=== PATIENT | female | born 1950 | race African-American/Black ===

== ENCOUNTER 2018-10-25 20:49 | Emergency (ER) | payer OTHER ==
[2018-10-25] MEDS ORDERED: ASPIRIN 81 MG TABLET, CHEWABLE PO ONE (21:11)
--- NOTE | 2018-10-25 21:58 | RADIOLOGY REPORT (SQ) ---
XR CHEST 2 VIEWS EXAM DATE: 10/25/2018 12:00 AM CDT HISTORY: Chest pain. COMPARISON: None. FINDINGS: The heart size is within normal limits. No consolidation, pleural effusion, or pneumothorax is seen. The bony thorax is intact. IMPRESSION: No evidence of acute cardiopulmonary disease.
[2018-10-25 22:53] LABS: ABSOLUTE EOSINOPHILS # (AUTO) 0.1 10^3/uL (0.0-0.6); ABSOLUTE LYMPHOCYTES (AUTO) 2.2 10^3/uL (0.5-4.7); ABSOLUTE MONOCYTES (AUTO) 0.7 10^3/uL (0.1-1.4); ABSOLUTE NEUT (AUTO) 3.1 10^3/uL (1.7-8.2); BASOPHILS % (AUTO) 0.5 % (0-2); EOSINOPHILS % (AUTO) 0.8 % (0-6); HEMATOCRIT 41.4 % (36.0-47.0); HEMOGLOBIN 13.7 g/dL (12.0-15.5); LYMPHOCYTES % (AUTO) 36.5 % (13-45); MEAN CORPUSCULAR HEMOGLOBIN 30.1 pg (27.0-33.4); MEAN CORPUSCULAR VOLUME 91 fl (80-97); MONOCYTES % (AUTO) 10.9 % (3-13); PLATELET COUNT 206 10^3/uL (150-450); RED BLOOD COUNT 4.55 10^6/uL (3.72-5.28); RED CELL DISTRIBUTION WIDTH 13.2 % (11.5-14.0); SEGMENTED NEUTROPHILS % (AUTO) 51.3 % (42-78); TOTAL CELLS COUNTED % (AUTO) 100 %; WHITE BLOOD COUNT 6.1 10^3/uL (4.0-10.5)
[2018-10-25 23:09] LABS: ALBUMIN 4.5 g/dL (3.5-5.0); ALKALINE PHOSPHATASE 85 U/L (38-126); ANION GAP 7 (5-19); ASPARTATE AMINO TRANSFERASE 25 U/L (14-36); BILIRUBIN,DIRECT 0.1 mg/dL (0.0-0.4); BILIRUBIN,TOTAL 0.4 mg/dL (0.2-1.3); BLOOD UREA NITROGEN 19 mg/dL (7-20); CALCIUM 10.2 mg/dL (8.4-10.2); CARBON DIOXIDE 33 mmol/L (22-30); CHLORIDE 100 mmol/L (98-107); CREATINE KINASE 69 U/L (30-135); GLUCOSE 85 mg/dL (75-110); POTASSIUM 4.7 mmol/L (3.6-5.0); TOTAL PROTEIN 8.3 g/dL (6.3-8.2)
[2018-10-25 23:21] LABS: CREATINE KINASE MB 0.55 ng/mL (<4.55)
[2018-10-25 23:23] LABS: TROPONIN I < 0.012 ng/mL
--- NOTE | 2018-10-26 00:18 | ER Document Report ---
ED Cardiac - General Chief Complaint: Chest Pain Stated Complaint: CHEST PAIN Time Seen by Provider: 10/26/18 00:10 Primary Care Provider: LUPIS GRANDA MD [ACTIVE STAFF] - Follow up tomorrow Notes: Patient is a 68-year-old female that comes emergency department for chief complaint of chest pain that she noticed earlier this morning, she states that she notices shortness of breath with the pain, pain is over the left side of the chest. She states that it is intermittently worse but it has not gone away. She still feels a mild discomfort. She denies dizziness, cough, fever, nausea, vomiting, difficulty eating, pain with movement. She denies injury. She did travel by flight 2 weeks ago, she is visiting from [place] with her sister. She denies smoking, alcohol, recreational drugs, or any daily medications. Only past medical history reported is arthritis and hysterectomy, and she treats OA with yoga and physical therapy. She states her mom had CHF but she does not have any family members with determined heart attacks. TRAVEL OUTSIDE OF THE [place] IN LAST 30 DAYS: No Past Medical History - General Information source: Patient - Social History Smoking Status: Never Smoker Frequency of alcohol use: None Drug Abuse: None Lives with: Family Family History: Other - CHF Patient has suicidal ideation: No Patient has homicidal ideation: No Renal/ Medical History: Denies: Hx Peritoneal Dialysis Musculoskeletal Medical History: Reports Hx Arthritis - Osteoarthritis Past Surgical History: Reports: Hx Hysterectomy, Hx Orthopedic Surgery - arthroscopy Review of Systems - Review of Systems Constitutional: No symptoms reported EENT: No symptoms reported Cardiovascular: See HPI Respiratory: See HPI Gastrointestinal: No symptoms reported Genitourinary: No symptoms reported Female Genitourinary: No symptoms reported Musculoskeletal: No symptoms reported Skin: No symptoms reported Hematologic/Lymphatic: No symptoms reported Neurological/Psychological: No symptoms reported Physical Exam - Vital signs Vitals: Temp Pulse Resp BP Pulse Ox 98.3 F 65 18 120/62 99 10/25/18 21:08 10/25/18 21:08 10/25/18 21:08 10/25/18 21:08 10/25/18 21:08 - Notes Notes: GENERAL: Alert, interacts well. No acute distress. HEAD: Normocephalic, atraumatic. EYES: Pupils equal, round, and reactive to light. Extraocular movements intact. ENT: Oral mucosa moist, tongue midline. Oropharynx unremarkable. Airway patent. NECK: Full range of motion. Supple. Trachea midline. LUNGS: Clear to auscultation bilaterally, no wheezes, rales, or rhonchi. No respiratory distress. Chest is nontender on exam. HEART: Regular rate and rhythm. No murmur ABDOMEN: Soft, non-tender. Non-distended. Bowel sounds present in all 4 quadrants. GENITOURINARY: Deferred EXTREMITIES: Moves all 4 extremities spontaneously. No edema, normal radial and dorsalis pedis pulses bilaterally. No cyanosis. BACK: no cervical, thoracic, lumbar midline tenderness. No saddle anesthesia, normal distal neurovascular exam. NEUROLOGICAL: Alert and oriented x3. Normal speech. Cranial nerves II through XII grossly intact. PSYCH: Normal affect, normal mood. SKIN: Warm, dry, normal turgor. No rashes or lesions noted. Course - Re-evaluation Re-evalutation: EKG without acute findings, chest x-ray unremarkable, CBC, chemistry unremarkable, troponin is negative. Patient does not have tenderness on palpation. No radiation, stays in the left side, is mild but has persisted sin ce earlier and started at rest. She recently had a flight within the past 2 weeks. She does not specifically have lower extremity swelling, she is not tachycardic or hypoxic, she is not in distress. Basically no past medical history reported. Her heart score is only 2 (atypical pain, no risk factors other than age, negative troponin and EKG). CTA of the chest negative. Second troponin negative. I discussed with patient, discussed admission. This was because of her age and being uncertain what the cause of the chest pain is. Patient and sister both requested to leave. Patient states currently she has no chest pain, she states she fell asleep, slept for a couple of hours, and then when she woke up she had no pain. She states that she will take a screw machine operator single spindle referral because she is here for more weeks and she will closely follow-up with them. She states she will return if she worsens. As result she was discharged with return precautions. - Vital Signs Vital signs: Temp Pulse Resp BP Pulse Ox 98.3 F 65 18 120/62 100 10/25/18 21:08 10/25/18 21:08 10/25/18 21:08 10/25/18 21:08 10/26/18 01:24 - Laboratory Result Diagrams: 10/25/18 22:41 10/25/18 22:41 Laboratory results interpreted by me: 10/25/18 22:41 Carbon Dioxide 33 H Est GFR (Non-Af Amer) 55 L Total Protein 8.3 H - EKG Interpretation by Me Additional EKG results interpreted by me: 10/26/18 00:12 EKG shows sinus rhythm at a rate of 70, QTC of 441, WI interval is 200. Normal axis. No T wave inversions or ST segment changes in consecutive leads. Discharge - Discharge Clinical Impression: Chest pain of uncertain etiology Condition: Stable Disposition: HOME, SELF-CARE Additional Instructions: The cause of your chest pain is uncertain at this time. Your work-up does not show any concerning findings. You have elected to go home and follow-up close with cardiology instead of admission, please call the referral listed for close follow-up. Return if you worsen including passing out, difficulty breathing, returned or worse pain, fever, or any other concerning symptoms. Referrals: LUPIS GRANDA MD [ACTIVE STAFF] - Follow up tomorrow
--- NOTE | 2018-10-26 01:51 | RADIOLOGY REPORT (SQ) ---
CLINICAL HISTORY: chest pain, SOB, recent flight COMPARISON: None. TECHNIQUE: CT CHEST ANGIOGRAPHY WITHOUT THEN WITH IV CONTRAST on 10/26/2018 12:28 AM CDT. MIPS reconstructions were generated. This exam was performed according to our departmental dose-optimization program, which includes automated exposure control, adjustment of the mA and/or kV according to patient size and/or use of iterative reconstruction technique. MIP images were generated. FINDINGS: Thoracic aorta is normal in course and caliber without aneurysm or dissection. Pulmonary arteries are adequately opacified without acute or chronic filling defects. The heart is mildly enlarged. There is no pericardial effusion. Intrathoracic lymph nodes are not enlarged. There is no pleural effusion, pleural thickening or pneumothorax. Central airways are patent. Lungs are clear with no consolidation, mass or interstitial lung disease. There are no acute abnormalities within the limited images of the upper abdomen. There are no acute osseous findings. No suspicious bony lesions. IMPRESSION: No aortic dissection or aneurysm. No pulmonary embolus. No pneumonia.
[2018-10-26 03:36] VITALS: BP 136/90
--- NOTE | 2018-10-26 17:29 | EKG REPORT ---
SEVERITY:- NORMAL ECG - SINUS RHYTHM : Confirmed by: Dafne Martinez MD 26-Oct-2018 17:28:41
== END 2018-10-26 03:36 | disposition home or self-care (01) ==
LOC: ER 20:49
DX: R07.89 Other chest pain (principal); R06.02 Shortness of breath; Z82.49 Family history of ischemic heart disease and other diseases of the circulatory system
CPT/HCPCS: 36415; 71046; 71275; 80053; 82550; 82553; 84484; 85025; 93005; 93010